=== PATIENT | male | born 1985 | race Caucasian/White ===

== ENCOUNTER 2019-03-12 06:31 | Emergency (ER) | payer MEDICAID ==
[~2019-03-12] VITALS: Ht 182.9 cm; Wt 81.8 kg
[2019-03-12 08:06] VITALS: BP 134/85
== END 2019-03-12 08:07 | disposition home or self-care (01) ==
LOC: ER 06:32
DX: N50.3 Cyst of epididymis (principal); N43.3 Hydrocele, unspecified; F12.90 Cannabis use, unspecified, uncomplicated; F15.90 Other stimulant use, unspecified, uncomplicated
CPT/HCPCS: 76870; 99284

== ENCOUNTER 2019-12-06 07:05 | Inpatient (IN) | payer MEDICAID ==
[~2019-12-06] VITALS: Ht 182.9 cm; Wt 77.3 kg
[2019-12-06] MEDS ORDERED: NO HOME MEDS (07:30)
[2019-12-06] MEDS ORDERED: ampicillin/sulbac 3gm/NS 100ml 100 ML IV STA (07:43)
[2019-12-06] MEDS ORDERED: normal saline 1000ML IV soln IV ONE (07:45)
[2019-12-06] MEDS ORDERED: ketorolac tromethamine 15mg/ml inj. IV ONE (07:55)
[2019-12-06 08:26] LABS: BASOPHILS % (AUTO) 0.2 % (0-1); EOSINOPHILS # (AUTO) 0.3 X10'3 (0-0.9); EOSINOPHILS % (AUTO) 3.3 % (0-6); HEMATOCRIT 45.8 % (42.0-52.0); HEMOGLOBIN 15.3 g/dl (14.0-17.9); LYMPHOCYTES # (AUTO) 1.5 X10'3 (1.1-4.8); LYMPHOCYTES % (AUTO) 17.7 % (21-51); MEAN CORPUSCULAR HEMOGLOBIN 31.1 PG (27.0-31.0); MEAN CORPUSCULAR HGB CONC 33.5 g/dL (33.0-36.5); MEAN CORPUSCULAR VOLUME 92.8 FL (78-98); MONOCYTES # (AUTO) 0.7 X10'3 (0-0.9); MONOCYTES % (AUTO) 7.9 % (2-12); NEUTROPHILS % (AUTO) 70.9 % (42-75); PLATELET COUNT 311 X10'3 (140-440); RED BLOOD COUNT 4.93 X10'6 (4.70-6.10); RED CELL DISTRIBUTION WIDTH 13.4 % (11.5-14.5); WHITE BLOOD COUNT 8.5 X10'3 (4.5-11.0)
[2019-12-06 08:32] LABS: ALANINE AMINOTRANSFERASE 23 U/L (12-78); ALBUMIN 3.5 G/DL (3.4-5.0); ALBUMIN/GLOBULIN RATIO 0.9 (1.1-1.5); ALKALINE PHOSPHATASE 107 IU/L (46-116); ANION GAP 5 (8-16); ASPARTATE AMINO TRANSFERASE 18 U/L (10-37); BILIRUBIN,TOTAL 0.3 MG/DL (0.1-1.0); BLOOD UREA NITROGEN 12 MG/DL (7-18); BUN/CREATININE RATIO 12.6 (5.4-32.0); C-REACTIVE PROTEIN 1.28 MG/DL (0.0-0.5); CALCIUM 9.1 MG/DL (8.5-10.1); CHLORIDE 104 MMOL/L (99-107); CREATININE 0.95 MG/DL (0.60-1.10); GLUCOSE 107 MG/DL (70-104); MAGNESIUM 1.9 MG/DL (1.5-2.4); POTASSIUM 4.2 MMOL/L (3.5-5.1); SODIUM 139 MMOL/L (135-145); TOTAL CARBON DIOXIDE 30.1 MMOL/L (24-32); TOTAL PROTEIN 7.5 G/DL (6.4-8.2); eGFR 90 ML/MIN
[2019-12-06] MEDS ORDERED: dextrose 5%-1/2 normal saline 1,000 ML IV SCH (09:20)
[2019-12-06] MEDS ORDERED: HYDROcodone/acetaminophen 5mg/325mg tablet PO PRN (09:20)
[2019-12-06] MEDS ORDERED: acetaminophen 325mg tablet PO PRN ×2 (09:20)
[2019-12-06] MEDS ORDERED: ondansetron/PF 4mg/2ml inj IV PRN (09:20)
[2019-12-06] MEDS ORDERED: morphine 2 MG/ML inj. syringe IV PRN ×2 (09:20)
[2019-12-06] MEDS ORDERED: mag hydrox/Alum hydrox/simeth 30ml oral suspension PO PRN (09:20)
[2019-12-06] MEDS ORDERED: CefTRIAXone/D5W-Rocephin 1gm 50 ML IV SCH (09:20)
[2019-12-06] MEDS ORDERED: HYDROcodone/acetaminophen 10/325mg tab PO PRN (09:20)
[2019-12-06] MEDS ORDERED: magnesium hydroxide 30ml (MOM) UD suspension PO PRN (09:20)
--- NOTE | 2019-12-06 10:31 | NUR ---
Patient in room [facility]. I have received report from SHITAL BABB FROM ER and had the opportunity to ask questions and assume patient care.
[2019-12-06 10:47] LABS: CLARITY,URINE CLEAR (Clear); COLOR,URINE YELLOW (Yellow); GLUCOSE, URINE NEGATIVE (Neg); KETONES,URINE NEGATIVE (Neg); LEUKOCYTE ESTERASE ,URINE NEGATIVE (Neg); NITRITES, URINE NEGATIVE (Neg); OCCULT BLOOD,URINE NEGATIVE (Neg); PH,URINE 5.5 (4.8-8.0); PROTEIN,URINE NEGATIVE (Neg); UROBILINOGEN,URINE 0.2 E.U/dL (0.2-1.0)
[2019-12-06 10:53] LABS: UA COLLECTION TYPE CLN CATCH MIDSTREAM; URINE AMPHETAMINE SCREEN POSITIVE (Neg); URINE BARBITUATE SCREEN NEGATIVE (Neg); URINE BENZODIAZEPINES SCREEN NEGATIVE (Neg); URINE CANNABINOID SCREEN POSITIVE (Neg); URINE COCAINE SCREEN POSITIVE (Neg); URINE METHADONE SCREEN NEGATIVE (Neg); URINE OPIATE SCREEN NEGATIVE (Neg); URINE PHENCYCLIDINE SCREEN NEGATIVE (Neg)
[2019-12-06 10:55] VITALS: BP 132/77
[2019-12-06 11:01] LABS: HIV ANTIBODY 1&2 RAPID NON-REACTIVE (Neg)
[2019-12-06] MEDS: vancomycin/NS 1 GM ADD-VANTAGE 250 ML IV SCH ×2 (11:39→19:04)
[2019-12-06] MEDS ORDERED: metroNIDAZOLE-Flagyl 500mg/NS 100 ML IV SCH (16:00)
[2019-12-06 18:00] VITALS: BP 136/74
--- NOTE | 2019-12-06 18:30 | NUR ---
Problems reprioritized. Patient report given, questions answered & plan of care reviewed with SHITAL SEWELL.
--- NOTE | 2019-12-06 18:36 | NUR ---
Patient in room [facility]. I have received report from Laila ISAACS and had the opportunity to ask questions and assume patient care. Addendum: 12/06/19 at 1836 by Amalia Santos RN Received report for Rm #[id number]
[2019-12-06] MEDS ORDERED: lactobacillus rhamnosus 10,000 MMU CELLS/CAPSULE PO SCH (20:00)
[2019-12-06] MEDS ORDERED: vancomycin/NS 1 GM ADD-VANTAGE 250 ML IV SCH (20:00)
--- NOTE | 2019-12-06 20:15 | NUR ---
Found patient in the room dressed with IV on the floor (canula intact) and tele monitor removed. Patient states that he wants to leave "I can't do this anymore", states that his daughter is in town. Teachings provided regarding the importance of his antibiotics. Patient states, he will be back tomorrow.
[2019-12-07] MEDS ORDERED: VANCOMYCIN LEVEL IV ONE (09:30)
== END 2019-12-06 20:15 | disposition left against medical advice (07) | DRG 383 ==
LOC: ER 07:06 → ED HOLD 09:20 → SUR 3N 10:52
PROVIDERS: ADMIT Internal Medicine; ATTEND Internal Medicine
DX: L03.114 Cellulitis of left upper limb (principal); F12.90 Cannabis use, unspecified, uncomplicated; Z53.29 Procedure and treatment not carried out because of patient's decision for other reasons; F17.210 Nicotine dependence, cigarettes, uncomplicated; F14.10 Cocaine abuse, uncomplicated; F15.90 Other stimulant use, unspecified, uncomplicated; L02.512 Cutaneous abscess of left hand
CPT/HCPCS: 36415; 73200; 80053; 80305; 81003; 83605; 83735; 85025; 85610; 86140; 86703; 86803; 87040; 87081; 96365; 96375; 99285; G0378; J0295; J1885; J3370; J3490; J7030

== ENCOUNTER 2020-04-04 15:44 | Emergency (ER) | payer MEDICAID ==
[~2020-04-04] VITALS: Ht 182.9 cm; Wt 77.3 kg
[~2020-04-04 15:44] MED LIST: NO HOME MEDS
[2020-04-04 15:54] VITALS: BP 130/86
[2020-04-04] MEDS ORDERED: penicillin G benzathine 1.2 million unit/2ml syringe IM ONE (16:40)
== END 2020-04-04 17:08 | disposition home or self-care (01) ==
LOC: ER 15:45
DX: Z20.2 Contact with and (suspected) exposure to infections with a predominantly sexual mode of transmission (principal); H53.8 Other visual disturbances; F12.90 Cannabis use, unspecified, uncomplicated; F15.90 Other stimulant use, unspecified, uncomplicated; F19.90 Other psychoactive substance use, unspecified, uncomplicated
CPT/HCPCS: 36415; 86592; 96372; 99283; J0561

== ENCOUNTER 2021-08-01 15:43 | Emergency (ER) | payer MEDICAID | END 2021-08-01 18:19 | disposition left against medical advice (07) | LOC: ER 15:43 | DX: M79.89 Other specified soft tissue disorders (principal); Z53.21 Procedure and treatment not carried out due to patient leaving prior to being seen by health care provider ==

== ENCOUNTER 2023-12-25 16:13 | Emergency (ER) | payer MEDICAID ==
[~2023-12-25] VITALS: Ht 182.9 cm; Wt 81.8 kg
[2023-12-25 16:18] VITALS: BP 147/75; PULSE 87; RESP 16; TEMP 98.6; O2SAT 95
== END 2023-12-25 17:45 | disposition left against medical advice (07) ==
LOC: ER 16:14
DX: R06.02 Shortness of breath (principal); R07.89 Other chest pain; Z53.21 Procedure and treatment not carried out due to patient leaving prior to being seen by health care provider
CPT/HCPCS: 71045; 93005